=== PATIENT | male | born 1995 | race Hispanic/Latino ===

== ENCOUNTER 2021-10-19 09:40 | Emergency (ER) | payer SELFPAY | END 2021-10-19 10:54 | disposition home or self-care (01) | LOC: ERS 09:40 | DX: R21 Rash and other nonspecific skin eruption (principal); F17.210 Nicotine dependence, cigarettes, uncomplicated | CPT/HCPCS: 99282 ==

== ENCOUNTER 2023-01-28 19:40 | Emergency (ER) | payer SELFPAY ==
[~2023-01-28 19:40] MED LIST: Iopamidol-370 76% 500 ML 1 ML ONE
[2023-01-28] MEDS ORDERED: HYDROcodone/Acetaminophen 5/325 mg Tablet ONE (23:00)
[2023-01-28] MEDS ORDERED: Ibuprofen 200 MG TAB ONE (23:00)
== END 2023-01-29 00:59 | disposition home or self-care (01) ==
LOC: ERS 19:40
DX: S52.502A Unspecified fracture of the lower end of left radius, initial encounter for closed fracture (principal); S20.212A Contusion of left front wall of thorax, initial encounter; F17.210 Nicotine dependence, cigarettes, uncomplicated; W17.89XA Other fall from one level to another, initial encounter; Y93.9 Activity, unspecified
CPT/HCPCS: 29125; 70450; 71260; 72125; 74177; Q9967